=== PATIENT | female | born 1965 | race Two or more races ===

== ENCOUNTER 2022-08-03 05:30 | Day surgery (SDC) | payer OTHER ==
[~2022-08-03] VITALS: Ht 154.9 cm; Wt 65.3 kg
[~2022-08-03 05:30] MED LIST: AMPICILLIN TRI500 MG PO; DOLOGESIC CAPLE1 TAB PO; [UNRECOGNIZED DRUG - OTHER] PO
[2022-08-03] MEDS ORDERED: MACROBID 100 M100 MG PO (11:42)
[2022-08-03] MEDS ORDERED: TRAM1TAB98 PO (11:43)
== END 2022-08-03 14:35 | disposition home or self-care (01) ==
LOC: CIR.AMB 05:30
PROVIDERS: ATTEND Obstetrics & Gynecology Gynecology
DX: N81.11 Cystocele, midline (principal); N81.6 Rectocele; N81.5 Vaginal enterocele; Z20.822 Contact with and (suspected) exposure to COVID-19